=== PATIENT | male | born 1935 | race Caucasian/White ===

== ENCOUNTER 2023-06-07 13:22 | Outpatient (CLI) | payer MEDICARE, SELFPAY ==
--- NOTE | ~2023-06-07 | XR_ITS ---
EXAMINATION: XR barium swallow DATE: 06/07/2023 14:20 INDICATION: Acute pharyngitis TECHNIQUE: The patient drank thick barium, gas-producing crystals, and thin barium. Fluoroscopic spot radiographs of the hypopharynx and esophagus were obtained. Fluoroscopy exposure time was 1.7 minut es. COMPARISON: None. FINDINGS: The pharynx is symmetric and without evidence of mass lesion or mucosal irregularity. There is a moderate-sized sliding-type hiatal hernia with gastroesophageal junction approximately 6 cm abo ve level of the diaphragm. There is irregular somewhat lobular contour with smooth mucosal surface al keisha the anterior margin of the gastroesophageal junction. The more proximal esophagus is normal witho ut mass or stricture. Esophageal motility is within normal limits for age. There were repeated episo karina of spontaneous gastroesophageal reflux of a large amount of contrast to the level of the upper th oracic esophagus while in the supine position. IMPRESSION: 1. Moderate-sized sliding-type hiatal hernia with recurrent spontaneous gastroesophageal reflux. 2. Lobular contour was smooth mucosal surface along the anterior margin of the gastroesophageal junct ion which could represent artifact of architectural distortion related to the hernia but would recomm end further evaluation with endoscopy to exclude malignancy. Reviewed, dictated and finalized at location A. IMPRESSION: 1. Moderate-sized sliding-type hiatal hernia with recurrent spontaneous gastroe sophageal reflux. 2. Lobular contour was smooth mucosal surface along the anterior margin of the gastroesophageal junction which could represent artifact of architectural disto rtion related to the hernia but would recommend further evaluation with endosco py to exclude malignancy.
== END 2023-06-07 13:23 | disposition home or self-care (01) ==
LOC: ANHIMG 13:24
PROVIDERS: Visit Provider Otolaryngology
DX: K21.9 Gastro-esophageal reflux disease without esophagitis (principal); K44.9 Diaphragmatic hernia without obstruction or gangrene; J02.9 Acute pharyngitis, unspecified
CPT/HCPCS: 74220

== ENCOUNTER 2023-06-22 07:00 | Outpatient (NON) | payer MEDICARE, SELFPAY | END 2023-06-22 07:01 | disposition home or self-care (01) | LOC: ANHLAB 06-23 07:30 | PROVIDERS: PCP Internal Medicine; Visit Provider Internal Medicine Gastroenterology | DX: K21.9 Gastro-esophageal reflux disease without esophagitis (principal) | CPT/HCPCS: 88305; 88312 ==

== ENCOUNTER 2023-06-22 09:54 | Day surgery (SDC) | payer MEDICARE, SELFPAY ==
[2023-06-12 13:07] VITALS: BMI 22.5
--- NOTE | 2023-06-22 08:12 | P.PNAN_ITS ---
Anes - Initial Pre Proc Eval Procedure: Operation Date: 06/22/23 14:00 Proposed Procedures p Esophagogastroduodenoscopy - Venancio Ramirez MD Date/Time: 06/22/23 08:12 Surgeon: Venancio Ramirez MD Pre Op Diagnosis: Gerd without Esophagitis Patient Data Age: 87 Gender: M Height: 1.8 m Weight: 71.214 kg Allergies Allergy/AdvReac Type Severity Reaction Status Date / Time No Known Allergies Allergy Unverified 05/25/23 12:42 Home Medications Medication Instructions Recorded Confirmed Type amlodipine 5 mg tablet 5 mg PO DAILY 06/12/23 06/22/23 History atenolol 50 mg tablet 50 mg PO DAILY 06/12/23 06/22/23 History lisinopril 40 mg tablet 40 mg PO DAILY 06/12/23 06/22/23 History oxybutynin chloride 10 mg 5 mg PO DAILY 06/12/23 06/22/23 History tablet,extended release 24 hr pantoprazole 40 mg tablet,delayed 40 mg PO DAILY 06/12/23 06/22/23 History release Patient hx anesthesia problems: none Family hx anesthesia problems: none Results Review: All pre-operative results and documents have been reviewed as part of the pre- operative evaluation. [facility] Past Medical History Medical History GERD (gastroesophageal reflux disease) Hypertension Kidney disorder Surgical History Surgical History H/O right knee surgery (~2006) History of cholecystectomy (~2004) History of left knee surgery (~2006) History of prostate surgery (~2008) Family History Family History Father Heart disease Social History Social History Social History: Caffeine- coffee Smoking status: Former smoker Alcohol intake: current Alcohol use details: rarely Substance use: never Substance use type: does not use Lack of Transportation: No Lack of Food: Never True Current Housing: I Have Housing Concerned About Future Housing: No Difficulty Paying Gas/Electric Bills: No Difficulty Paying for Meds: No Currently Unemployed: No Education: High School Diploma/GED Difficulty w/ Childcare or Family Care: No Living arrangements: alone Gender identity (if verbalized by the patient): Male Spiritual care concerns: No Agree to blood products: Yes Anes - Eval Final PreProcedure Day of Procedure 06/22/23 08:12 Patient weight: normal Heart: regular rate and rhythm Lungs: clear to auscultation and normal air movement Airway: Mallampati scale class II Neurological: alert and oriented Last oral intake: >/= 8 hours ASA classification: III Emergent: no Anesthetic plan: proceed Anesthesia type and monitoring: general GIVS and standard monitoring Results Review: All pre-operative results and documents have been reviewed as part of the pre- operative evaluation. Informed Consent: The patient's anesthetic plan and its attendant risks and benefits were discussed with the patient/family/POA. Questions were solicited and answers provided to the satisfaction of the patient/family/POA.
--- NOTE | 2023-06-22 11:05 | PM.HPGS ---
History of Present Illness History of Present Illness Consent: Risks, benefits, and alternatives have been discussed and questions answered. Patient agrees to proceed with procedure. Chief complaint: Gerd without Esophagitis Narrative: Linden Castro is a 87 year old male who T because of an abnormal barium swallow. The patient has had a discomfort in the left side of his throat when swallowing he denies dysphagia. He occasionally gets heartburn. A BARIUM SWALLOW REVEALED: 1. Moderate-sized sliding-type hiatal hernia with recurrent spontaneous gastroesophageal reflux. 2. Lobular contour was smooth mucosal surface along the anterior margin of the gastroesophageal junction which could represent artifact of architectural distortion related to the hernia but would recommend further evaluation with endoscopy to exclude malignancy. Review of Systems Review of Systems: All systems reviewed & are unremarkable except as noted in HPI and below PMFSH Past Medical History Medical History GERD (gastroesophageal reflux disease) Hypertension Kidney disorder Surgical History Surgical History H/O right knee surgery (~2006) History of cholecystectomy (~2004) History of left knee surgery (~2006) History of prostate surgery (~2008) Family History Family History Father Heart disease Social History Social History Social History: Caffeine- coffee Smoking status: Former smoker Alcohol intake: current Alcohol use details: rarely Substance use: never Substance use type: does not use Lack of Transportation: No Lack of Food: Never True Current Housing: I Have Housing Concerned About Future Housing: No Difficulty Paying Gas/Electric Bills: No Difficulty Paying for Meds: No Currently Unemployed: No Education: High School Diploma/GED Difficulty w/ Childcare or Family Care: No Living arrangements: alone Gender identity (if verbalized by the patient): Male Spiritual care concerns: No Agree to blood products: Yes Meds Home Medications and Allergies Home Medications Medication Instructions Recorded Confirmed Type amlodipine 5 mg tablet 5 mg PO DAILY 06/12/23 06/22/23 History atenolol 50 mg tablet 50 mg PO DAILY 06/12/23 06/22/23 History lisinopril 40 mg tablet 40 mg PO DAILY 06/12/23 06/22/23 History oxybutynin chloride 10 mg 5 mg PO DAILY 06/12/23 06/22/23 History tablet,extended release 24 hr pantoprazole 40 mg tablet,delayed 40 mg PO DAILY 06/12/23 06/22/23 History release Allergies Allergy/AdvReac Type Severity Reaction Status Date / Time No Known Allergies Allergy Unverified 05/25/23 12:42 Exam Const: General: alert Orientation/consciousness: patient oriented x3 Resp: Auscultation: clear to auscultation bilaterally Cardio: Rhythm: regular rhythm GI: GI Palp: Yes Soft to palpation and No Tenderness to palpation present (GI) Neuro: General: patient oriented x3 Assessment and Plan Assessment and plan (1) GERD (gastroesophageal reflux disease): Code(s): K21.9 - Gastro-esophageal reflux disease without esophagitis Status: Acute Assessment and Plan: EGD with possible biopsy or dilatation or cautery. (2) Abnormal barium swallow: Code(s): R93.3 - Abnormal findings on diagnostic imaging of other parts of digestive tract Status: Acute Assessment and Plan: EGD with possible biopsy or dilatation or cautery.
[2023-06-22 11:07] VITALS: BP 169/84; PULSE 80; RESP 16; TEMP 37.1; O2SAT 100; BMI 21.8
[2023-06-22] MEDS: LACTATED RINGERS 1,000 ML 150 ML IV CONT (11:20)
[2023-06-22 11:52] VITALS: BP 82/60; PULSE 62; RESP 16; O2SAT 100
[2023-06-22 12:02] VITALS: BP 105/65; PULSE 63; RESP 18; O2SAT 100
--- NOTE | 2023-06-22 12:32 | WPDANESPN ---
Anes - Prog Note Post-Op Date/Time: 06/22/23 12:32 Cardiovascular status: normal Respiratory status: normal Airway patency: baseline Mental status: baseline Post-Op hydration status: normal Vital Signs: Last Vital Signs Temp 37.1 C 06/22/23 11:07 Pulse 63 06/22/23 12:02 Resp 18 06/22/23 12:02 BP 105/65 06/22/23 12:02 Pulse Ox 100 06/22/23 12:02 O2 Del Method Room Air 06/22/23 12:02 Pain Score (VAS): 0 I/O: Intake & Output 06/21/23 06/22/23 06/22/23 23:59 07:59 15:59 Intake Total 500 Balance 500 Post-procedural complaints: none Patient Feedback: Patient satisfied with anesthetic care. Other Findings: Patient vital signs back to baseline. Patient denies nausea and vomiting. Patient's pain under control. Patient OK for discharge.
== END 2023-06-22 12:35 | disposition home or self-care (01) ==
PROVIDERS: PCP Internal Medicine; Visit Provider Internal Medicine Gastroenterology
PROC: 0DJ08ZZ Inspection of Upper Intestinal Tract, Via Natural or Artificial Opening Endoscopic (ICD-10-PCS; CPT 43235; principal; 2023-06-22 14:00)
DX: K22.11 Ulcer of esophagus with bleeding (principal); K31.7 Polyp of stomach and duodenum; K44.9 Diaphragmatic hernia without obstruction or gangrene
CPT/HCPCS: 43239; 43255

== ENCOUNTER 2025-01-27 09:24 | Outpatient (CLI) | payer MEDICARE, SELFPAY ==
--- NOTE | ~2025-01-27 | MR_ITS ---
MRI of the cervical spine Clinical History: Cervicalgia Technique: Axial T2-weighted and gradient images, and sagittal T1-weighted, T2-weighted, and STIR elmer ges were acquired. Findings: No acute fracture seen. There is 3 mm anterolisthesis of C3 over C4. There is severe degene rative change at the articulation of the odontoid process with the anterior arch of C1, there is reac tive marrow edema in the odontoid process. There is degenerative marrow signal change in the C4 and C 6 vertebral bodies. No suspicious marrow signal abnormality evident. At C2-C3, there is minimal disc bulge. There is bilateral facet arthropathy. There is severe left carson ral foraminal narrowing. There is mild right neural foraminal narrowing. No canal stenosis or cord co mpression. At C3-C4, there is moderate to advanced degenerative disc narrowing. There is mild disc bulge. No fra nk canal stenosis. There is bilateral facet arthropathy with severe bilateral neural foraminal narrow ing. At C4-5, there is fusion across the disc space. No canal stenosis or cord compression. There is advan renee bilateral neural foraminal narrowing. At C5-C6, there is severe degenerative disc narrowing. No canal stenosis or cord compression. There i s advanced bilateral neural foraminal narrowing. At C6-C7, there is advanced degenerative disc narrowing. No canal stenosis or cord compression. No le ft neural foraminal narrowing. Probable minimal right neural foraminal narrowing. No abnormal signal seen in the spinal cord. Paravertebral soft tissues are unremarkable. Impression: Moderate degenerative spondylosis overall, with multilevel neural foraminal narrowing and degenerativ e disc change, as detailed above. Fusion across the C4-C5 disc space. 3 mm anterolisthesis of C3 over C4. Advanced degenerative change at the articulation of the odontoid process with the anterior arch of C1 . Reviewed, dictated and finalized at location M. Impression: Moderate degenerative spondylosis overall, with multilevel neural foraminal colette rowing and degenerative disc change, as detailed above. Fusion across the C4-C5 disc space. 3 mm anterolisthesis of C3 over C4. Advanced degenerative change at the articulation of the odontoid process with t he anterior arch of C1.
== END 2025-01-27 09:25 | disposition home or self-care (01) ==
LOC: GOSHIMG 09:24
PROVIDERS: PCP Internal Medicine; Visit Provider Internal Medicine
DX: M47.892 Other spondylosis, cervical region (principal); M48.02 Spinal stenosis, cervical region; M43.12 Spondylolisthesis, cervical region
CPT/HCPCS: 72141

== ENCOUNTER 2025-05-06 08:37 | Outpatient (CLI) | payer MEDICARE, SELFPAY ==
--- OUTSIDE RECORDS SUMMARY | 2025-05-06 08:58 | XMS_ITS | Clinical Summary ---
Author Organization [facility] Facility Address [address] [place] [id number] Care Team Providers Care Chemical Engineering Professor Name Role Phone Chi Liu MD Primary Care Provider [phone] Medications amLODIPine (NORVASC) 10 MG tablet Take 1 tablet (10 mg total) by mouth every night 90 tablet 1 12/12/2023 Active Social History Tobacco Use Types Packs/Day Years Used Date Smoking Tobacco: Never Assessed Sex and Gender Information Value Date Recorded Sex Assigned at Not on file Legal Sex Male 11:40 AM EDT Gender Identity Not on file Sexual Orientation Not on file Last Filed Vital Signs Vital Sign Reading Time Taken Comments Blood Pressure 140/80 12/10/2024 1:13 PM CDT Pulse 69 12/10/2024 1:13 PM CDT Temperature 36.7 C (98 F) 12/10/2024 1:13 PM CDT Respiratory Rate 18 12/10/2024 1:13 PM CDT Oxygen Saturation 98% 12/10/2024 1:13 PM CDT Inhaled Oxygen Concentration - - Weight 70.8 kg (156 lb 1.6 oz) 12/10/2024 1:13 P M CDT Height - - Body Mass Index - - Plan of Treatment Upcoming Encounters Date Type Department Care Team (Late st Contact Info) Description 12/16/2025 12:30 PM CDT Office Visit [facility], [facility] [address] [facility] [address] [place] [address] Nishant Taylor, DO [address] [facility] [address] [place] [address] Health Maintenance Due Date Last Done Comments Pneumococcal Vaccine: 50+ Years (1 of 2 - PCV) 1954 Influenza Vaccine (#1) 2025 1, 05/23/2021, 04/30/2020, Additional history exists Hepatitis B Vaccine Aged Out No longe r eligible based on patient's age to complete this topic Insurance [facility] Medicare Advance Directives Documents on File Type Date Recorded 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
--- OUTSIDE RECORDS SUMMARY | 2025-05-06 08:58 | XMS_ITS | Clinical Summary ---
Author Organization [facility] Address [address] [place] [id number] Care Team Providers Care Orthopedic Assistant Name Role Phone Unavailable Primary Care Provider Unavailabl e Social History Tobacco Use Types Packs/Day Years Used Date Smoking Tobacco: Never Assessed Sex and Gender Information Value Date Recorded Sex Assigned at Not on file Legal Sex Male 6:39 PM CDT Gender Identity Not on file Sexual Orientation Not on file Plan of Treatment Health Maintenance Due Date Last Done Comments DTaP, Tdap and Td Vaccines ( 1 - Tdap) 1954 Pneumococcal Vaccine: 50+ Ye ars (1 of 1 - PCV) 10/25/1987 Zoster Vaccines (1 of 2) 10/25/1987 RSV Immunization or 60+ Years (1 - 1-dose 75+ series) 2012 COVID-19 Vaccine ( - 2023-2 5 season) 2025 Meningococcal B Vaccine Aged Out No l onger eligible based on patient's age to complete this topic Meningococcal Vaccine Aged Out No marva shoshana eligible based on patient's age to complete this topic RSV Immunizations Under 20 Months Aged Out No longer eligible based on patient's age to complete this topic
--- NOTE | 2025-05-06 09:20 | NEURO_ITS ---
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 # Very minimal poor response from right median nerve. # Poor response from left median motor nerve. # Right Ulnar Neuropathy across the elbow. # Needle/ EMG exam abnormal: left triceps also shows neurogenic changes. Could be related to higher involvement. Nerve Conduction Studies ?Stim Site NR Peak (ms) P-T Amp (?V) Site1 Site2 Delta-P (ms) Dist (cm) Wilder (m/s) Left Median Anti Sensory (2-3nd Digit)??? NO RESPONSE Wrist NR Wrist 2-3nd Digit 14.0 Wrist NR Wrist 2-3nd Digit 14.0 Right Median Anti Sensory (2-3nd Digit)??? NO RESPONSE Wrist NR Wrist 2-3nd Digit 14.0 Wrist NR Wrist 2-3nd Digit 14.0 Left Radial Anti Sensory (Base 1st Digit) Wrist ? 2.7 10.0 Wrist Base 1st Digit 2.7 0.0 Right Radial Anti Sensory (Base 1st Digit) Wrist ? 2.7 9.3 Wrist Base 1st Digit 2.7 0.0 Left Ulnar Anti Sensory (5th Digit) Wrist ? 4.5 11.1 Wrist 5th Digit 4.5 14.0 31 Right Ulnar Anti Sensory (5th Digit)??? NO RESPONSE Wrist NR Wrist 5th Digit 14.0 ?Stim Site NR Onset (ms) O-P Amp (mV) Site1 Site2 Delta-0 (ms) Dist (cm) Wilder (m/s) Left Median Motor (Abd Poll Brev) Wrist ? 4.0 0.2 Elbow Wrist 8.3 33.0 40 Elbow ? 12.3 0.4 Right Median Motor (Abd Poll Brev)??? DISPERSED RESPONSE Wrist ? 13.8 0.0 Elbow Wrist 21.0 26.0 12 Elbow ? 34.8 0.1 Left Ulnar Motor (Abd Dig Minimi) Wrist ? 4.3 4.9 A Elbow Wrist 6.0 32.0 53 A Elbow ? 10.3 4.3 B Elbow Wrist 4.3 23.0 53 B Elbow ? 8.6 3.8 Right Ulnar Motor (Abd Dig Minimi) Wrist ? 3.9 6.5 A Elbow Wrist 7.2 31.0 43 A Elbow ? 11.1 3.4 B Elbow Wrist 4.9 21.0 43 B Elbow ? 8.8 1.5 F Wave Studies ?NR F-Lat (ms) L-R F-Lat (ms) Left Median (Mrkrs) (Abd Poll Brev) ? 38.83 Right Median (Mrkrs) (Abd Poll Brev)??? NO RESPONSE NR Left Ulnar (Mrkrs) (Abd Dig Min) ? 35.47 2.73 Right Ulnar (Mrkrs) (Abd Dig Min) ? 32.74 2.73 Electromyography ?Side Muscle Nerve Root Ins Act Fibs Amp Dur Recrt Comment Right 1stDorInt Ulnar C8-T1 Nml Nml Decr >12ms +1 Left 1stDorInt Ulnar C8-T1 Nml Nml Decr >12ms +1 Right ABD Dig Min Ulnar C8-T1 Nml Nml Incr >12ms +1 Left ABD Dig Min Ulnar C8-T1 Nml Nml Incr >12ms +1 Left Abd Poll Brev Median C8-T1 Nml Nml Decr >12ms +2 Right Abd Poll Brev Median C8-T1 Nml Nml Decr >12ms +3 Right Abd Poll Long Radial (Post Int) C7-8 Nml Nml Nml Nml Nml Left Abd Poll Long Radial (Post Int) C7-8 Nml Nml Nml Nml Nml Right Biceps Musculocut C5-6 Nml Nml Nml Nml Nml Left Biceps Musculocut C5-6 Nml Nml Nml Nml Nml Left BrachioRad Radial C5-6 Nml Nml Nml Nml Nml Right BrachioRad Radial C5-6 Nml Nml Nml Nml Nml Right Deltoid Axillary C5-6 Nml Nml Decr Nml Nml Left Deltoid Axillary C5-6 Nml Nml Decr Nml Nml Right Ext Digitorum Radial (Post Int) C7-8 Nml Nml Nml Nml Nml Left Ext Digitorum Radial (Post Int) C7-8 Nml Nml Nml Nml Nml Left Ext Indicis Radial (Post Int) C7-8 Nml Nml Nml Nml Nml Right Ext Indicis Radial (Post Int) C7-8 Nml Nml Nml Nml Nml Left FlexPolLong Median (Ant Int) C7-8 Nml Nml Nml Nml Nml Right FlexPolLong Median (Ant Int) C7-8 Nml Nml Nml Nml Nml Right PronatorTeres Median C6-7 Nml Nml Nml Nml Nml Left PronatorTeres Median C6-7 Nml Nml Nml Nml Nml Left Triceps Radial C6-7-8 Nml Nml Nml >12ms +1 Right Triceps Radial C6-7-8 Nml Nml Nml Nml Nml
== END 2025-05-06 08:38 | disposition home or self-care (01) ==
LOC: ANHNEURO 08:38
PROVIDERS: PCP Internal Medicine; Visit Provider Internal Medicine
DX: G56.03 Carpal tunnel syndrome, bilateral upper limbs (principal); G56.21 Lesion of ulnar nerve, right upper limb
CPT/HCPCS: 95886; 95911